=== PATIENT | female | born 1940 | race Caucasian/White ===

== ENCOUNTER 2022-01-31 21:30 | Emergency (ER) | payer MEDICARE ==
[~2022-01-31] VITALS: Ht 167.6 cm; Wt 73.0 kg
[2022-01-31 22:16] VITALS: BP 207/97
[2022-01-31 22:50] VITALS: BP 124/106
[2022-01-31 22:52] VITALS: BP 162/80
[2022-01-31 23:00] VITALS: BP 176/110
[2022-01-31 23:01] LABS: HEMOGLOBIN 13.6 g/dl (12.0-16.0); IMMATURE GRANULOCYTES 0.1 % (0.0-5.0); MEAN CELL VOLUME 94.2 fL CALC (80.0-100.0); MEAN CORPUSCULAR HGB 30.5 pG CALC (26.0-32.0); MEAN CORPUSCULAR HGB CONC 32.4 g/dL CAL (32.0-36.0); NEUT# 5.05 thou/uL (2.00-7.15); RED BLOOD COUNT 4.46 mill/uL (4.20-5.60); RED CELL DISTRI WIDTH 12.8 % (11.5-15.5)
[2022-01-31 23:16] VITALS: BP 162/59
[2022-01-31 23:31] VITALS: BP 173/65
[2022-01-31 23:57] LABS: ALBUMIN 4.6 g/dL (3.2-5.0); BILIRUBIN, TOTAL 0.8 mg/dL (0.0-1.4); CREATININE 1.6 mg/dL (0.5-1.0); POTASSIUM 4.2 mmol/l (3.5-5.1); TOTAL PROTEIN 8.1 g/dL (6.3-8.2)
[2022-02-01 00:01] VITALS: BP 74/44
[2022-02-01 00:04] VITALS: BP 101/66
[2022-02-01 00:15] VITALS: BP 90/57
[2022-02-01 00:16] LABS: URINE BILIRUBIN - DIPSTICK NEGATIVE (NEGATIVE); URINE BLOOD DIPSTICK TRACE-LYSED (NEGATIVE); URINE COLOR YELLOW; URINE GLUCOSE - DIPSTICK NEGATIVE (NEGATIVE); URINE KETONE NEGATIVE (NEGATIVE); URINE LEUK ESTERASE NEGATIVE (NEGATIVE); URINE NITRITE - DIPSTICK NEGATIVE (Negative); URINE PH 5.5 (4.5-8.0); URINE PROTEIN - DIPSTICK NEGATIVE (NEG-TRACE); URINE SPECIFIC GRAVITY <=1.005; URINE UROBILINOGEN - DIPSTICK 0.2 E.U./dL (0.2)
[2022-02-01] MEDS ORDERED: CITALOPRAM20 M1 PO (00:25)
[2022-02-01] MEDS ORDERED: ELIQUIS5 MG PO (00:26)
[2022-02-01] MEDS ORDERED: METOPROL TAR25 MG PO (00:27)
[2022-02-01] MEDS ORDERED: CLOPIDOGREL75 MG PO (00:28)
[2022-02-01] MEDS ORDERED: ATORVASTATIN CA40 MG PO (00:28)
[2022-02-01] MEDS ORDERED: VITAMIN D31000 UNI1 PO (00:29)
[2022-02-01 00:30] VITALS: BP 94/48
[2022-02-01] MEDS ORDERED: B121000 MC1 PO (00:30)
[2022-02-01] MEDS ORDERED: XANAX0.25 MG PO (00:30)
[2022-02-01] MEDS ORDERED: AMLODIPINE BESYL5 MG PO (00:39)
[2022-02-01] MEDS ORDERED: AMOXICILLIN500 MG PO (00:39)
[2022-02-01 00:45] VITALS: BP 69/41
[2022-02-01 00:52] VITALS: BP 99/56
== END 2022-02-01 01:15 | disposition home or self-care (01) ==
LOC: ED 21:30
PROVIDERS: Family Medicine
DX: I10 Essential (primary) hypertension (principal); J01.10 Acute frontal sinusitis, unspecified; S70.12XA Contusion of left thigh, initial encounter; X58.XXXA Exposure to other specified factors, initial encounter